=== PATIENT | male | born 1995 | race Caucasian/White ===

== ENCOUNTER 2024-03-23 05:17 | Emergency (ER) | payer MEDICAID, OTHER ==
[~2024-03-23] VITALS: Ht 170.2 cm; Wt 72.7 kg
[2024-03-23 05:17] VITALS: BP_SYST 134; PULSE 83; RESP 16; TEMP 98.1; O2SAT 98
[2024-03-23 05:33] VITALS: BP_DIAS 88
--- NOTE | 2024-03-23 07:19 | ED.PDOC ---
History of Present Illness(SKN HPI Comments 28 year old male presents to the ED with chief complaint of abscess. Patient reports that he has been experiencing what seems to be an abscess to his right buttock that he believes was caused by an ingrown hair. Patient relays that he had the same complaint a few months ago where it had been drained, however, it has come back again with the swelling and redness it had before. Patient states he was told to come back if it returned. Patient denies any fever, chills, drainage, or pain. Chief Complaint: Abscess Time Seen by MD: 07:05 Primary Care Provider: DR BURROUGHS History of Present Illness: Nurses Notes, Medications, Allergies Information Source: Patient Mode of Arrival: Ambulatory Severity: Moderate Timing: Months Duration: Since onset Prehospital treatment: None Location: Buttock Mechanism: Spontaneous Onset Object: None Condition of Object: None Retained Foreign Body: No Wound Type: Abscess Immunization Status of Animal: NA Tetanus: Unknown History of: None Associated Signs and Symptoms: Redness, Swelling Past Medical History PAST MEDICAL HISTORY: Denies Surgical History: Denies all surgeries Family History Family History: Reviewed,noncontributory to illness Social History Smoker: Non-Smoker Alcohol: Denies ETOH Use Drugs: Denies Drug Use Lives In: Home Constitutional: denies: chills, diaphoresis, fatigue, fever, malaise, sweats, weakness, others EENTM: denies: blurred vision, double vision, ear bleeding, ear discharge, ear drainage, ear pain, ear ringing, eye pain, eye redness, hearing loss, mouth pain, mouth swelling, nasal discharge, nose bleeding, nose congestion, nose pain, photophobia, tearing, throat pain, throat swelling, voice changes, others Respiratory: denies: cough, hemoptysis, orthopnea, SOB at rest, shortness of breath, SOB with excertion, stridor, wheezing, others Cardiovascular: denies: chest pain, dizzy spells, diaphoresis, Dyspnea on exe rtion, edema, irregular heart beat, left arm pain, lightheadedness, palpitations, PND, syncope, others Gastrointestinal: denies: abdomen distended, abdominal pain, blood streaked bowels, constipated, diarrhea, dysphagia, difficulty swallowing, hematemesis, melena, nausea, poor appetite, poor fluid intake, rectal bleeding, rectal pain, vomiting, others Genitourinary: denies: burning, dysuria, flank pain, frequency, hematuria, incontinence, penile discharge, penile sore, pain, testicle pain, testicle swelling, urgency, others Neurological: denies: dizziness, fainting, headache, left sided numbness, left sided weakness, numbness, paresthesia, pre-existing deficit, right sided numbness, right sided weakness, seizure, speech problems, tingling, tremors, weakness, others Musculoskeletal: denies: back pain, gout, joint pain, joint swelling, muscle pain, muscle stiffness, neck pain, others Integumetry: reports: others (abscess to right buttock); denies: bruises, change in color, change in hair/nails, dryness, laceration, lesions, lumps, rash, wounds Allergic/Immunocompromised: denies: Difficulty Healing, Frequent Infections, Hives, Itching, others Hematologic/Lymphatic: denies: anemia, blood clots, easy bleeding, easy bru ising, swollen glands, others Endocrine: denies: excessive hunger, excessive sweating, excessive thirst, e xcessive urination, flushing, intolerance to cold, intolerance to heat, unexplained weight gain, unexplained weight loss, others Psychiatric: denies: anxiety, bipolar disorder, depression, hopeless, panic disorder, schizophrenia, sleepless, suicidal, others All Other Systems: Reviewed and Negative Physical Exam General Appearance: No Apparent Distress, Normal HEENT: Normal ENT Inspection, Pharynx Normal, TMs Normal Neck: Full Range of Motion, Non-Tender, Normal, Normal Inspection Respiratory: Chest Non-Tender, Lungs Clear, No Accessory Muscle Use, No Respiratory Distress, Normal Breath Sounds Cardiovascular: No Edema, No JVD, No Murmur, No Gallop, Normal Peripheral Pulses, Regular Rate/Rhythm Breast Exam: Deferred Gastrointestinal: No Organomegaly, Non Tender, No Pulsatile Mass, Normal Bowel Sounds, Soft Genitalia: Deferred Pelvic: Deferred Rectal: Deferred Extremities: No calf tenderness, Normal capillary refill, Normal inspection, Normal range of motion, Non-tender, No pedal edema Musculoskeletal : Apperance: Normal Neurologic: Alert, design draftsman II-XII nml as Tested, No Motor Deficits, Normal Affect, Normal Mood, No Sensory Deficits Cerebellar Function: Normal Reflexes: Normal Skin: Dry, Normal Color, Warm, Other (Mild erythema with no fluctuance noted to the right buttock) Lymphatic: No Adenopathy Was a procedure done? Was a procedure done?: No Differential Diagnosis (INTG) Differential Diagnosis: Abscess X-Ray, Labs, Meds, VS Vital Signs Date Time Temp Pulse Resp B/P (MAP) Pulse Ox O2 Delivery O2 Flow Rate FiO2 03/23/24 05:33 98.1 83 16 134/88 (103) 98 Time of 1ST Reevaluation: 07:12 Reevaluation 1ST: Unchanged Patient Education/Counseling: Diagnosis, Treatment Family Education/Counseling: No Family Present Additional Information I reviewed the following notes from patient's past medical encounters: None The following tests were ordered, and results were reviewed by me: None I reviewed and agreed with the following test results read by other providers: None Additional Information was gathered from interviewing the following independent historians: None I discussed treatment and results with medical personnel. Departure 1 Departure Time of Disposition: 07:20 (Patient has some erythema over the cheek but no palpable abscess. We will empirically cover patient with antibiotics and refer patient to general surgery.) Impression: Primary Impression: Cellulitis of right buttock Disposition: 01 HOME / SELF CARE / HOMELESS Condition: Stable Referrals: DAISY CHOWDARY MD Additional Instructions: You have cellulitis. This is a skin infection. You were prescribed antibiotics. Please take as directed. You can take tylenol and motrin as needed for pain. It is important that you follow up with your regular doctor within one week to ensure you are doing well. You were referred to a general surgeon who may be able to help prevent these from recurring. Please call for an appointment. If your symptoms worsen or you have any other concerns then please return to the ER. e-Prescriptions Sulfamethoxazole W/Trimethopri (Bactrim Ds Tablet) 1 Tab Tb 1 TAB PO BID for 7 Days, #14 TAB Prov: SARIKA MCCORMACK MD 03/23/24 Discharged With: Self Critical Care Note Critical Care Time?: No Stability Stability form required: No Heart Score Heart Score: Heart Score Response (Comments) Value History N/A 0 EKG N/A 0 Age N/A 0 Risk Factors N/A 0 Troponin N/A 0 Total 0 I personally scribed for SARIKA MCCORMACK MD ([email or web address]) on 03/23/24 at 07:19. Electronically submitted by Moris Larry ([email or web address]). SARIKA MCCORMACK MD Mar 23, 2024 07:19
[2024-03-23] MEDS ORDERED: BACDST PO (07:22)
== END 2024-03-23 07:38 | disposition home or self-care (01) ==
LOC: ER 05:17
DX: L03.317 Cellulitis of buttock (principal)